=== PATIENT | male | born 1965 | race Caucasian/White ===

== ENCOUNTER 2021-07-14 08:30 | Inpatient (IN) | payer OTHER ==
[2021-07-12 15:39] VITALS: BMI 30.1
[2021-07-14 09:36] LABS: Hemoglobin 14.6 g/dL (13.5-17.5); Mean Corpuscular HGB CONC 33.3 g/dL (32.0-36.0); Mean Corpuscular Hemoglobin 33.6 pg (27.0-33.0); Mean Corpuscular Volume 101.2 fl (81.2-95.1); Mean Platelet Volume 8.9 fl (7.4-10.4); Platelet Count 172 10x3/uL (150-450); RBC Distribution Width 12.4 % (11.5-14.5); Red Blood Cell (RBC) Count 4.34 10x6/uL (4.32-5.72); White Blood Cell (WBC) Count 5.2 10x3/uL (3.5-10.5)
[2021-07-14 09:51] LABS: INR-International Normal Ratio 0.9; PTT 26.4 sec (22.0-33.0); Prothrombin Time 9.9 sec (9.5-12.1)
[2021-07-14 09:52] LABS: Anion Gap 13 mmol/L (10-20); BUN (Urea Nitrogen) 17 mg/dL (8.4-25.7); Calc. Creatinine Clearance 0 mL/min (70-130); Calcium 9.1 mg/dL (7.8-10.44); Carbon Dioxide 30 mmol/L (22-29); Chloride 104 mmol/L (98-107); Glucose 93 mg/dL (70-105); Potassium 4.6 mmol/L (3.5-5.1); Sodium 142 mmol/L (136-145)
[2021-07-14 20:47] LABS: SARS-CoV-2 PCR by NAA Not Detected (NotDetected)
[2021-07-18] MEDS ORDERED: Famotidine/PF 20 mg/2ml Vial ONE (06:25)
[2021-07-18] MEDS ORDERED: Lidocaine 1% MPF 2 ML VIAL ONE (06:25)
[2021-07-18] MEDS ORDERED: Fentanyl 100 MCG/2 ML VIAL ONE ×3 (06:39→11:44)
[2021-07-18] MEDS ORDERED: Ketamine 50 MG/ML (10ML VIAL) ONE (06:46)
[2021-07-18] MEDS ORDERED: Propofol 1,000 MG/100 ML VIAL IV ONE (06:47)
[2021-07-18] MEDS ORDERED: EPINEPHrine 1 MG/ML AMP ONE (06:51)
[2021-07-18] MEDS ORDERED: Bupivacaine 0.25% HCL 30 ML VIAL ONE (06:51)
[2021-07-18] MEDS ORDERED: Midazolam HCl 2 mg/2 ml Vial ONE ×2 (06:55→08:11)
[2021-07-18] MEDS ORDERED: ceFAZolin 2 GM/Dextrose 50 ML IVPB ONE (07:45)
[2021-07-18] MEDS ORDERED: PROPOFOL 40 ML ONE (08:14)
[2021-07-18] MEDS ORDERED: Lidocaine 1% PF 5 ML VIAL ONE (08:14)
[2021-07-18] MEDS ORDERED: Dexamethasone 4 mg/ml Vial ONE (08:42)
[2021-07-18] MEDS ORDERED: Ondansetron PF 4 MG/2 ML Vial ONE (08:42)
[2021-07-18] MEDS ORDERED: Ondansetron ODT 4 MG TAB PO PRN (11:43)
[2021-07-18] MEDS: HYDROcodone/Acetaminophen 10/325 mg Tablet PO PRN ×3 (14:58→21:57)
[2021-07-18] MEDS: Morphine 4 MG/ML VIAL SLOW IVP PRN ×2 (14:59→21:57)
[2021-07-18] MEDS: ceFAZolin 2 GM/Dextrose 50 ML 2 GM in Premix Bag 1 BAG IVPB SCH ×2 (16:30→23:28)
[2021-07-18] MEDS ORDERED: NEVIRAPINE 200 MG PO SCH (21:00)
[2021-07-18] MEDS ORDERED: Gabapentin 400 MG CAP PO SCH (21:00)
[2021-07-18] MEDS: Aspirin 81 mg Enteric Coated Tablet PO SCH (21:55)
[2021-07-18] MEDS ORDERED: Prevnar 13-Val Conj/PF 0.5 ML SYRINGE IM ONE (23:15)
[2021-07-19] MEDS: HYDROcodone/Acetaminophen 10/325 mg Tablet PO PRN ×3 (04:52→13:52)
[2021-07-19] MEDS ORDERED: HYDROcodone/Acetaminophen 10/325 mg Tablet ONE (07:57)
[2021-07-19] MEDS: Aspirin 81 mg Enteric Coated Tablet PO SCH (08:16)
[2021-07-19] MEDS: ceFAZolin 2 GM/Dextrose 50 ML 2 GM in Premix Bag 1 BAG IVPB SCH (08:17)
[2021-07-19] MEDS ORDERED: ABACAVIR PO SCH (09:00)
[2021-07-19] MEDS ORDERED: Cholecalciferol 1,000 UNITS (25 MCG) TAB PO SCH (09:00)
[2021-07-19] MEDS ORDERED: Calcium Carbonate 500 MG TAB PO SCH (09:00)
[2021-07-19] MEDS ORDERED: Acyclovir 400 mg Tablet PO SCH (09:00)
[2021-07-19] MEDS ORDERED: LAMIVUDINE PO SCH (09:00)
[2021-07-19] MEDS ORDERED: [UNRECOGNIZED DRUG - OTHER] PO SCH (09:00)
[2021-07-19 14:04] VITALS: BP 131/72; TEMP 98.4
== END 2021-07-19 13:55 | disposition home or self-care (01) | DRG 455 ==
LOC: UNDOADMIN 07-18 05:30 → CSHERHOLD 07-18 05:30 → CSHTELE 07-18 13:20
PROVIDERS: ADMIT Orthopaedic Surgery; ATTEND Orthopaedic Surgery
PROC: 0SG00AJ Fusion of Lumbar Vertebral Joint with Interbody Fusion Device, Posterior Approach, Anterior Column, Open Approach (ICD-10-PCS; principal; 2021-07-18)
PROC: 0SG0071 Fusion of Lumbar Vertebral Joint with Autologous Tissue Substitute, Posterior Approach, Posterior Column, Open Approach (ICD-10-PCS; 2021-07-18)
PROC: 4A11X4G Monitoring of Peripheral Nervous Electrical Activity, Intraoperative, External Approach (ICD-10-PCS; 2021-07-18)
DX: M51.16 Intervertebral disc disorders with radiculopathy, lumbar region (principal); Z20.822 Contact with and (suspected) exposure to COVID-19; M48.061 Spinal stenosis, lumbar region without neurogenic claudication; M43.12 Spondylolisthesis, cervical region; M41.86 Other forms of scoliosis, lumbar region
CPT/HCPCS: 72110; 80048; 85027; 85610; 85730; 86850; 86900; 86901; 94760; C1713; C1763; C1889; J0171; J0690; J1100; J2250; J2270; J2405; J2704; J3010; S0020; S0028; U0003; U0005